=== PATIENT | male | born 1995 | race African-American/Black ===

== ENCOUNTER 2020-02-08 16:38 | Emergency (ER) | payer SELFPAY ==
[2020-02-08 16:42] VITALS: BP 98/70; PULSE 103; RESP 18; TEMP 36.9; O2SAT 100
== END 2020-02-08 16:52 | disposition left against medical advice (07) ==
LOC: ER 21:56
PROVIDERS: Emergency Provider Family Medicine
DX: Z53.21 Procedure and treatment not carried out due to patient leaving prior to being seen by health care provider (principal)
CPT/HCPCS: 99281

== ENCOUNTER 2020-02-08 16:59 | Emergency (ER) | payer SELFPAY ==
[2020-02-08 17:15] VITALS: BP 122/72; PULSE 89; RESP 18; TEMP 36.9; O2SAT 96; BMI 32.3
--- NOTE | 2020-02-08 17:36 | PC.NURSE ---
Patient could be heard in a nearby room yelling at staff. Dr. Bertrand at bedside trying to communicate with the patient. The patient verbalized wanting to kill himself to nursing staff. The patient attempted to leave the room. Security at the room attempting to keep the patient in the room while Dr. Schmitt attempted to verbally calm and reason with him. The patient broke free from security. Staff assist computer security coordinator until he could apply an appropriate hold. chief supply chain officer regained control. Patient continued to struggle with security and staff until Dr. Schmitt (stationary steam engineer) advised us to stand down due to verbal statements of harm to ED staff. Patient was released and allowed to leave. PD called.
--- NOTE | 2020-02-08 17:51 | ED_ITS ---
HPI - Overdose General: Chief Complaint: Overdose Stated Complaint: od Time Seen by Provider: 02/08/20 17:20 History of Present Illness: HPI Narrative: 4-year-old black male who presented earlier in the day and told the triage nurse he taken 6 Xanax in an attempt to harm himself. He left the triage without being seen. Triage nurse called the [place] PD to have the patient brought back for evaluation. He came back of his own accord accompanied by his was triaged and brought to her room. When I went to the room he was mildly aggravated I asked his to leave the room so we could do the history and exam patient became quite upset. See notes below Physical Exam Narrative: EXAM NARRATIVE: Refused by patient Course Vital Signs: Vital signs: Vital Signs Temperature 98.4 F 02/08/20 17:15 Pulse Rate 89 02/08/20 17:15 Respiratory Rate 18 02/08/20 17:15 Blood Pressure 122/72 02/08/20 17:15 Pulse Oximetry 96 02/08/20 17:15 MDM - Overdose MDM Narrative: Medical decision making narrative: Patient denied suicidal ideation. However there is documentation from earlier in the day that he had intentionally overdosed. Tried to de-escalate with him and discussed with him that we if we just get him medically cleared out have a psychiatrist see him in the emergency room as soon as possible and if the psychiatrist I do not to be wrist himself or others he would be discharged immediately. Did inform him that based on his earlier comments he would have to be 96. Patient became extremely belligerent at that point and tried to force his way out of the room security was present. Nela Officer Andrea Sevilla and negative cleaner Khari Briscoe attempted to stop the patient and de-escalate with him the patient became increasingly violent. I instructed both Roel and Luis Felipe to allow the patient to leave I was concerned that they would become injured, the patient or some other bystander would become injured. The patient was allowed to leave the emergency room department. [facility] had been called prior to the patient leaving. We did inform the patient that if he left since he was considered to be on a 96- hour hold that the police department would have to bring him back here for evaluation. We have notified PD and I talked to officers from [facility] department about what it happened here he also notified them that of his 's comment and my perception after interviewing the patient that he was trying to generate a fight to get someone to harm him. Discharge Plan Discharge Patient Disposition: Left Against Medical Advice Coding Level of Care Code ED Public Works Laborer for Og Dhillon
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
== END 2020-02-08 17:36 | disposition left against medical advice (07) ==
LOC: ER 03-30 11:33
PROVIDERS: Emergency Provider Family Medicine
DX: T42.4X2A Poisoning by benzodiazepines, intentional self-harm, initial encounter (principal); Z53.21 Procedure and treatment not carried out due to patient leaving prior to being seen by health care provider
CPT/HCPCS: 12345; 99281

== ENCOUNTER 2020-02-08 19:59 | Inpatient (IN) | payer SELFPAY ==
[2020-02-08 20:01] VITALS: BP 138/91; PULSE 110; RESP 18; TEMP 37; O2SAT 97; BMI 31.3
--- NOTE | 2020-02-08 20:19 | ECG_ITS ---
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 Measurements Intervals [place] Rate: 77 P: 39 [place]: 163 QRS: 60 QRSD: 85 T: 12 QT: 342 QTc: 387 Interpretive Statements SINUS RHYTHM WITH SINUS ARRHYTHMIA ST ELEVATION, PROBABLY EARLY REPOLARIZATION [ST ELEVATION WITH NORMALLY INFLECTED T WAVE] NONSPECIFIC T-WAVE ABNORMALITY No previous ECG available for comparison Electronically Signed On 02-09-2020 9:50:24 CDT by Brent Colvin M.D. [email or web address]
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
[2020-02-08 20:54] LABS: Basophils % 0.4 %; Eosinophils # 0.1 10^3/uL (0.0-0.8); Eosinophils % 1.5 %; Hematocrit 44.5 % (42.0-52.0); Hemoglobin 14.2 g/dL (11.7-16.6); Lymphocytes # 1.6 10^3/uL (0.8-4.8); Lymphocytes % 30.2 %; Mean Corpuscular HGB Conc 31.9 g/dL (30.0-36.0); Mean Corpuscular Volume 81.5 fL (80-94); Mean Platelet Volume 9.9 fL (7.4-10.4); Monocytes # 0.4 10^3/uL (0.2-0.9); Monocytes % 8.2 %; Neutrophils # 3.19 10^3/uL (1.8-7.7); Neutrophils % 59.5 %; Nucleated Red Blood Cells % 0 %; Platelet Count 253 10^3/cmm (130-400); Red Blood Count 5.46 10^6/uL (4.1-5.3); White Blood Count 5.4 10^3/uL (4.0-10.0)
[2020-02-08 21:00] LABS: Glucose Point of Care 92 mg/dL (70-110)
--- NOTE | 2020-02-08 21:04 | PC.NURSE ---
EKG done at 2100 and shown to ER doctor
[2020-02-08 21:17] LABS: INR 1.04 (0.8-1.2)
[2020-02-08 21:24] LABS: Acetaminophen < 5.0 ug/mL (10-30); Alanine Aminotransferase 18 U/L (0-41); Albumin Level 4.3 g/dL (3.5-5.2); Alcohol Level < 10 mg/dL (0-10); Alkaline Phosphatase 104 IU/L (40-130); Anion Gap 13.8 (5-19); Aspartate Amino Transferase 20 U/L (0-40); Blood Urea Nitrogen 12 mg/dL (6-20); Calcium 9.4 mg/dL (8.5-10.5); Carbon Dioxide 25 mmol/L (22-29); Chloride 102 mmol/L (98-107); Globulin 3.1 g/dL (1.3-4.6); Glucose 97 mg/dL (65-115); Osmolality Calculated 280 mOsm/kg (285-295); Potassium 3.8 mmol/L (3.5-5.1); Salicylate 0.6 mg/dL (3-10); Sodium 137 mmol/L (136-145); Thyroid Stimulating Hormone 0.44 uIU/mL (0.27-4.20); Total Bilirubin 0.3 mg/dL (0.15-1.2); Total Protein 7.4 g/dL (6.6-8.7)
[2020-02-08 21:27] VITALS: BP 137/82; PULSE 66; RESP 11; O2SAT 98
[2020-02-08 21:36] LABS: Add Urine Microscopic? NO
[2020-02-08 21:37] LABS: Urine Appearance Clear (CLEAR); Urine Color Yellow (Yellow)
[2020-02-08 21:38] LABS: Bilirubin Urine Neg (NEGATIVE); Blood Urine Neg (Negative); Glucose Urine UA Norm (Normal); Ketones Urine Negative (Negative); Leukocyte Esterase Urine Negative (Negative); Nitrate Urine Negative (Negative); Protein Urine Neg (Negative); Urobilinogen Urine Norm (Negative); pH Urine 5 (5-7)
[2020-02-08] MEDS: sodium chloride 0.9% 1,000 ML 999 ML IV (22:00)
[2020-02-08 22:01] LABS: Amphetamines Screen Urine Negative (Negative); Barbiturates Screen Urine Negative (Negative); Benzodiazepines Screen Urine Positive (Negative); Cocaine Screen Urine Negative (Negative); Opiate Screen Urine Negative (Negative); PCP Screen Urine Negative (Negative); THC Screen Urine Positive (Negative)
[2020-02-08] MEDS: diphenhydrAMINE 50 mg/mL SDV 1mL IM (22:30)
[2020-02-08] MEDS: haloperidol inj 5 mg/mL INJ 1 mL 2 MG IM (22:30)
[2020-02-08] MEDS: LORazepam 2 mg/mL INJ 1 mL IM (22:30)
--- NOTE | 2020-02-08 22:33 | PM.HP ---
Providers/Chief Complaint Chief Complaint: OD History of Present Illness Elvin Steiner is a 24 year old male who presented to the hospital after a reported drug overdose. Patient is stating that he had an argument with his mother, he got really upset and took 6 tablets of Xanax, he did not intend to kill himself, he wanted to make a point in front of his mother, he was brought by EMS who found 3 empty bottles of Tylenol, Excedrin Migraine and loratadine. He left from the triage room, police department was reported who brought him back. He was very noncooperative and aggressive with the staff on second visit to the ER. He stated that he wanted to make appoint that people love you more when you are sick or . At the time of my evaluation he is very drowsy after getting Haldol and Ativan, is not able to give me much detail, review of symptoms not able to be taken, family history, surgical history unknown, no previous medical history from previous medical records. Review of Systems General: Reports: ROS unobtainable due to medical condition (He received Haldol and Ativan, really drowsy not able to give me much detail) Const: Reports: fever(s) Medications/Allergies Home Medications Medication Instructions Recorded Confirmed Last Taken Type Xanax See Rx Instructions .ROUTE .COMPLEX 02/08/20 02/08/20 02/08/20 History Allergies Allergy/AdvReac Type Severity Reaction Status Date / Time No Known Allergies Allergy Verified 02/08/20 21:13 PFSH Acute PFSH: Medical History (Updated 02/09/20 @ 01:04 by kD Arriola MD) Unknown family medical history Surgical History (Updated 02/09/20 @ 01:02 by Dk Arriola MD) Surgical history unknown Social History (Updated 02/09/20 @ 01:02 by Dk Arriola MD) Smoking and tobacco status: unknown if ever smoked Alcohol intake: unknown Substance/Drug Use: unknown Household members: spouse Housing: House Vitals/I&O/Wt Last Vital Signs Temp 98.6 F 02/08/20 20:01 Pulse 66 02/08/20 21:27 Resp 11 L 02/08/20 21:27 BP 137/82 02/08/20 21:27 Pulse Ox 98 02/08/20 21:27 Weight last 48 hrs Weight 90.718 kg Physical Exam Narrative: EXAM NARRATIVE: Young -[place] male currently very somnolent, is able to wake up on verbal commands, he opens his eyes, look around and goes back to sleep, not able to reciprocate appropriately Well-built male Scar radha on upper lip No active bleeding S1, S2 no tachycardia or signs of dehydration Heart rate ranging between 55-60, blood pressure stable Neurological assessment not applicable however patient is responding to verbal commands by opening his eyes on calling his name, his sat in his bed in front of me look around and went back to sleep No gross facial asymmetry, no gross neurological deficit Abdomen soft nontender nondistended bowel sound present Lungs are clear to auscultation No signs of respiratory depression Data : 02/08/20 20:48 02/08/20 20:48 A&P Assessment and plan (1) Drug overdose, intentional: Status: Acute (2) Depression: Status: Acute Additional A&P Information Intentional drug overdose Past medical, surgical, family history unknown patient not able to reciprocate during my evaluation, 3 empty bottles of loratadine, Excedrin migraine and Tylenol were found near him Patient reported taking Xanax to the triage nurse No active risk for depression, sinus bradycardia noted, no hemodynamic instability Clinically does not look fluid overloaded or dehydrated We will monitor him with one-to-one supervision, 96-hour hold, he will see a psychiatrist in the morning U tox reviewed For acute agitation I would use Ativan judiciously Once medically cleared he will go to npu Regular diet DVT prophylaxis not needed as he is low risk for PE Full code Attestations Medical Necessity Statement*: Anticipating stay in the hospital cross more than 2 midnights continue monitoring for drug overdose, he will see psychiatrist in the morning currently on 96-hour hold Time Spent in Patient Care: (>than 50% of time spent in counselling and/or direct pt care on unit). 30 minutes Coding Level of Care Code Acute Hi Lift Operator for Og Dhillon Diagnoses Drug overdose, intentional T50.902A Depression F32.9
[2020-02-08 22:42] VITALS: BP 125/64; PULSE 63; RESP 21; O2SAT 97
[2020-02-08 23:14] VITALS: BP 124/53; PULSE 64; RESP 20; O2SAT 99
--- NOTE | 2020-02-08 23:15 | PC.NURSE ---
Patient's oxygen levels dropped to 89%. Informed a nurse and was advised to place him on 2 liters of oxygen. I have placed patient on 2L via nasal cannual per nurse's orders.
[2020-02-08 23:59] VITALS: BP 133/53; PULSE 53; RESP 19; O2SAT 97
--- NOTE | 2020-02-09 01:14 | PC.NURSE ---
Pt becoming verbally aggresive, removing cardiac electrodes and IV. Pt demanding that to be D/C. Pt also demanding to be able to call his mother. Pt mother contacted, transferred to pt's room. After arguing with mother, pt becoming more agitated. States if you want to give me a shot, it's going to take the whole hospital to do that . De escalation techniques used. Pt cooperative, allowing meds to be adm in R deltoid. Pt becoming calm after meds adm
[2020-02-09 01:47] VITALS: BP 122/51; PULSE 60; RESP 16; O2SAT 98
[2020-02-09 02:30] VITALS: BP 102/66; PULSE 52; RESP 17; TEMP 36.1; O2SAT 98
--- NOTE | 2020-02-09 03:37 | PC.NURSE ---
THE PATIENT CAME TO THE FLOOR WITH A PAIR OF BLACK WITH ORANGE AND RED NIKE'S, BLACK SWEAT PANTS WITH ORANGE STRIPES, PLAIN WHITE T-SHIRT, BLUE PAIR OF BOXER BRIEFS, ORANGE BANDANA, BROWN WALLET WITH MISC. CARDS, SILVER IN COLOR WATCH, SILVER IN COLOR CHAIN WITH AN HOUR GLASS LOOKING CHARM WITH WHAT APPEARS TO BE ASHES IN IT, AND A SMALL POCKETED FOLDER WITH $64 IN ONE DOLLAR BILLS, $140 IN 20 DOLLAR BILLS, AND A SINGLE 100 DOLLAR BILL. IN TOTAL THERE IS $304. THIS MONEY WAS COUNTED WITH A SECOND NURSE. IN THE BAG OF THE PATIENT'S BELONGINGS THERE IS ALSO AN EMPTY BOTTLE OF ACETAMINOPHEN, EMPTY BOTTLE OF EXCEDRIN MIGRAINE, AND A BOTTLE OF ALLERGY RELIEF. ALL ITEMS LOCKED IN THE PYXIS WITH THE WITNESS OF A SECOND NURSE.
[2020-02-09 04:00] VITALS: BP 117/65; PULSE 49; RESP 15; TEMP 36.4; O2SAT 99
[2020-02-09 05:18] LABS: Basophils % 0.4 %; Eosinophils # 0.1 10^3/uL (0.0-0.8); Eosinophils % 2.4 %; Hemoglobin 12.9 g/dL (11.7-16.6); Lymphocytes % 43.5 %; Mean Corpuscular HGB Conc 31.5 g/dL (30.0-36.0); Mean Corpuscular Hemoglobin 25.9 pg (28.0-34.0); Mean Corpuscular Volume 82.2 fL (80-94); Mean Platelet Volume 10.4 fL (7.4-10.4); Monocytes # 0.4 10^3/uL (0.2-0.9); Monocytes % 7.6 %; Neutrophils # 2.12 10^3/uL (1.8-7.7); Neutrophils % 45.9 %; Nucleated Red Blood Cells % 0 %; Platelet Count 220 10^3/cmm (130-400); Red Blood Count 4.99 10^6/uL (4.1-5.3); White Blood Count 4.6 10^3/uL (4.0-10.0)
[2020-02-09 05:49] LABS: Alanine Aminotransferase 16 U/L (0-41); Albumin Level 3.9 g/dL (3.5-5.2); Alkaline Phosphatase 88 IU/L (40-130); Anion Gap 11.8 (5-19); Aspartate Amino Transferase 16 U/L (0-40); Blood Urea Nitrogen 13 mg/dL (6-20); Calcium 8.3 mg/dL (8.5-10.5); Carbon Dioxide 25 mmol/L (22-29); Chloride 105 mmol/L (98-107); Globulin 2.7 g/dL (1.3-4.6); Glomerular Filtration Rate 126.5 mL/min (90-130); Glucose 107 mg/dL (65-115); Osmolality Calculated 283 mOsm/kg (285-295); Potassium 3.8 mmol/L (3.5-5.1); Sodium 138 mmol/L (136-145); Total Bilirubin 0.2 mg/dL (0.15-1.2); Total Protein 6.6 g/dL (6.6-8.7)
[2020-02-09 07:32] VITALS: BP 99/55; PULSE 56; RESP 16; TEMP 36.4; O2SAT 97
[2020-02-09] MEDS: LORazepam 2 mg/mL INJ 1 mL IVP (10:12)
--- NOTE | 2020-02-09 10:12 | PC.NURSE ---
ATIVAN ATIVAN ADMINISTERED IM
--- NOTE | 2020-02-09 10:44 | P.PN_ITS ---
Subjective Subjective: Interval history: This morning he is awake, alert, he is walking out into the hallway. During my visit he reports that he is feeling far from home, and says that he is wanting to see some family. He says he feels ready to go home. Discussed with him that at this time it is not a possibility we know that he is safe. I did offer to update his mother with regards to his condition, and he provided us with her phone number. She expressed that she is worried about him and that she feels that he is a threat to self or others potentially given she feels he has been going to severe depression recently based on what he has been saying. He is stated that he has lost his job due to coronavirus. Recently he has also been through a number of deaths including his best friend who was involved in a murder suicide with his own father, as well as her brother who had recently. She and her had also previously , and it appears this has been difficult for him to go through as well. Mother feels that given his recent behavior he may have been purposefully trying to look for trouble and possibly act on his depression, perhaps inadvertently wishing to be harmed in the process. He had previously stated to her I am black and they are going to kill me . She does state that he had brought his firearm with him down here, but not the magazine she feels that this was again perhaps to try to cause a situation where he may get harmed. Vitals/I&O/Wt Last Vital Signs Temp 97.6 F 02/09/20 07:32 Pulse 56 L 02/09/20 07:32 Resp 16 02/09/20 07:32 BP 99/55 02/09/20 07:32 Pulse Ox 97 02/09/20 07:32 Weight last 48 hrs Weight 90.718 kg Physical Exam Const: COMMON NORMALS: no acute distress and patient oriented x3 OTHER: He appears restless, looking at the door, eager to leave. Was able to be talked down initially. HENMT: COMMON NORMALS: oropharynx normal Neck/C-Spine: COMMON NORMALS: no JVD Resp: COMMON NORMALS: normal respiratory effort and clear to auscultation bilaterally AUSCULTATION: clear to auscultation bilaterally Cardio: COMMON NORMALS: no JVD, regular rhythm, S1 normal heart sound present, S2 normal heart sound present and No murmurs present (Cardio) RHYTHM: regular rhythm HEART SOUNDS: S1 normal heart sound present and S2 normal heart sound present GI: COMMON NORMALS: Normal to inspection, nondistended, normoactive bowel sounds present, Soft to palpation and non-tender PALPATION: Yes Soft to palpation Extremity: COMMON NORMALS: no joint enlargement and no pedal edema Neuro: COMMON NORMALS: patient oriented x3 and moves all extremities Skin: COMMON NORMALS: no rashes or lesions noted GENERAL SKIN EXAM: no rashes or lesions noted Data : 02/09/20 04:35 02/09/20 04:35 A&P Assessment and plan (1) Drug overdose, intentional: He did well overnight. This morning he is restless, and has been ready to leave. Prescription with his mother she is highly concerned about his depression, with a number of deaths in people who are close to him, as well as him losing his job due to coronavirus, as well as his statements which make her concerned that he may be trying to get himself into harm's way, perhaps as part of his depression. She states that she has never been violent, but recently feels that perhaps violence has been way for him to find escape, and perhaps even a way to cause his own demise as a result of his depression. He himself states that he had taken pills just for short while, and that he did not mean to kill himself. He states he did not even swallow. He says he would like to leave as he is not close to any of his relatives. He wanted to see his mother if possible. Was reassured and agreed for me to give her an update. He has to tell her that he is out of his father first thing when he woke up. Per discussion with her peers today had also previously , and he did not take this very well. Patient himself states that he had gotten into the area following a girl that he had left. But states that they are no longer together He was reassured initially, and was able to calm down somewhat, however, again becoming somewhat restless, anxious later, and was given additional dose of Ativan. Remains awake, alert, conversant, and at this time makes no threat or attempt to leave. I reached out to our NPU as medically he is done well, hemodynamics have been stable, and he has no other complaints at this time, so that he may get add itional psychiatric assessment. He is on medical floor as reportedly there were no ICU beds where he could be admitted initially with 96-hour hold and one-to-one sitter. He does not currently have an IV. Status: Acute (2) Depression: As above. Status: Acute Additional A&P Information Incidentally noted bradycardia: This appears to be asymptomatic. Will monitor for now, it is possible he has a low resting heart rate, although his baseline is unknown. Attestations Medical Necessity Statement*: Continued admission is needed for assessment by psychiatry due to concern for unmanaged depression, suicidal ideation and attempt. Coding Level of Care Code Acute Diamond Selector for Og Dhillon Diagnoses Drug overdose, intentional T50.902A Depression F32.9
[2020-02-09 11:15] VITALS: BP 114/62; PULSE 59; RESP 18; TEMP 37; O2SAT 96
--- NOTE | 2020-02-09 12:16 | PC.NURSE ---
PATIENT WOKE UP AROUND 1000 WONDERING WHY HE WAS HERE AND WHAT WE INJECTED HIM WITH. PATIENT BEGAN PACING THE HALLS AND WAS AGITATED. THIS NURSE GOT A HOLD OF DR. GRANDE TO ASK ABOUT TRANSFER TO PSYCH. DR. EVANS CONSULTED AND TRANSFER ORDERS PLACED. PATIENT DOES NOT HAVE AN IV. [facility]IENT ESC[facility]ED OUT BY [facility]. PATIENT BELONGING LIST SENT ALONG WITH CHART. REPORT CALLED TO RICHARD POTTER.
[2020-02-09 20:06] VITALS: BP 110/60; PULSE 58; RESP 17; TEMP 36.9; O2SAT 96
[2020-02-09] MEDS: hyDROXYzine 25 mg Capsule 50 MG PO (21:04)
[2020-02-09] MEDS: trazodone 50 mg Tablet PO (21:05)
[2020-02-10 06:00] VITALS: BP 114/67; PULSE 54; RESP 16; TEMP 37.1; O2SAT 99
[2020-02-10] MEDS: folic acid 1 mg Tablet PO (08:27)
[2020-02-10] MEDS: thiamine 100 mg Tablet PO (08:27)
[2020-02-10 14:00] VITALS: BP 144/51; PULSE 99; RESP 20; TEMP 36.9; O2SAT 96
[2020-02-10] MEDS: escitalopram 10 mg Tablet PO (14:07)
--- NOTE | 2020-02-10 16:32 | XR_ITS ---
WS: [id number] Right hand, three views, 02/10/2020 Clinical Data: Pain and swelling Comparison: None. Findings: No fractures or dislocations are seen. The soft tissues are unremarkable. The joint space s are normal XR/XR hand RT min 3V* [id number] Impression: Negative right hand.
[2020-02-10 20:16] VITALS: BP 149/66; PULSE 68; RESP 21; TEMP 37; O2SAT 96
[2020-02-10] MEDS: trazodone 50 mg Tablet PO (20:46)
[2020-02-10] MEDS: OLANZapine 5 mg ODT PO (20:46)
[2020-02-11 06:00] VITALS: BP 103/67; PULSE 45; RESP 17; TEMP 36.7; O2SAT 97
[2020-02-11] MEDS: folic acid 1 mg Tablet PO (08:43)
[2020-02-11] MEDS: thiamine 100 mg Tablet PO (08:43)
[2020-02-11] MEDS: escitalopram 10 mg Tablet PO (08:43)
[2020-02-11 09:47] VITALS: BP 103/67; PULSE 45; RESP 17; TEMP 36.7; O2SAT 97
--- NOTE | 2020-02-11 11:03 | P.HP_ITS ---
Providers/Chief Complaint Admitting Physician: Dk Arriola MD Chief Complaint: OD HPI NPU History of Present Illness Elvin Steiner is a 24 year old male who presented to the emergency room a couple of days prior to admission to the unit, after a reported overdose. He then denied really taking the pills saying he has a prescription for the Xanax but he only took one that day. He was brought by EMS, and they brought empty pills bottles of Tylenol, Loratadine, and Excedrin Migraine. He denied wanting to kill himself but rather was reporting that he was trying to make a point. He was tearful and regretful during the evaluation. He was reportedly combative and attempted to assault staff earlier in the day. He left and the police were involved and brought him back. Upon return he was cooperative and was talking about what you have to do to get people to show that they love you. He said that he was being called names by his mother figure, and he endorsed conflicts that were seemingly insurmountable, at times. He was admitted to the hospital for evaluation and medical clearance, given the confusion about what he had actually ingested. After he was medically cleared he was brought to the neuropsychiatric unit. He presents here [place], and things had been getting better since he came here. He reports that he had been getting in trouble in the [facility] [place]. He reports he had psychiatric care when he was young. They endorsed that he had attention deficit hyperactivity disorder, but he said the medications were no good. He reports he does still struggle some with focus. He endorses that he does not smoke cigarettes with any regularity. He denies alcohol, marijuana, or any other illicit drug use. He denies going to drug rehabilitation or having a DUI. He denies previous hospitalizations. He is currently reporting pain on his right hand and depression and anxiety that are regular parts of his day, feelings of hopelessness, helplessness, worthlessness, some sleep difficulty, at times, and feelings of guilt. He denies any suicidal attempts or even legitimate suicidal thoughts. We discussed the risks, benefits, and alternatives of initiating Lexapro, and he understood and agreed to proceed as is documented in this note. PSYCHIATRIC HISTORY: As above. SUBSTANCE ABUSE HISTORY: As above. FAMILY HISTORY: He endorses mental health and addiction issues on his biological father?s side of the family. He denies any suicide attempts or completions in the family. DEVELOPMENTAL HISTORY: The patient denies any issues with his mother?s or delivery of him. The patient met all developmental milestones on time. The patient denies speech therapy, learning support, emotional support, or special education classes. PSYCHOSOCIAL HISTORY: He reports that his parents were together when he was born, but they split when he was about 3 years old. He endorses that his parents have he and his three older siblings together. He denies either of them having children with anyone else. He reports that his childhood was good and he denies any emotional, physical, or sexual abuse. But then later he did say that his mom?s friend may have done something but it was very critical for him that this not be anything that was ever discussed, and he did not really want to talk about it. He graduat ed from high school and had no college. He endorses being a heterosexual, with his longest relationship being about seven years. He has never been officially . He has a 6 year old son, whom he does see from time to time. He denies being in the . He reports believing in God. He reports that his longest job worked was three years at [employer]. He reports he lives in a house with his girlfriend. LEGAL HISTORY: Denied. MEDICAL HISTORY: None reported. Meds NPU Home Medications Medication Instructions Recorded Confirmed Last Taken Type escitalopram oxalate 10 mg PO DAILY 30 Days #30 tab 02/11/20 Unknown Rx Allergies Allergy/AdvReac Type Severity Reaction Status Date / Time No Known Allergies Allergy Verified 02/08/20 21:13 [facility] NPU PFS: Medical History (Updated 02/12/20 @ 00:01 by ) Unknown family medical history Surgical History (Updated 02/09/20 @ 01:02 by Dk Arriola MD) Surgical history unknown Social History (Updated 02/09/20 @ 01:02 by Dk Arriola MD) Smoking and tobacco status: unknown if ever smoked Alcohol intake: unknown Household members: spouse Housing: House Mental Status Exam MSE Comments: This is an overweight, -[place] male, looking younger than his stated age, with adequate dress, grooming, and eye contact. No abnormal movements. Cooperative with exam in no acute distress. Speech was normal rate and volume. Mood described as a little down; affect congruent. Thought process, organized. Thought content: patient denied any suicidal or homicidal ideation, there were no delusions reported or noted, patient denied any auditory or visual hallucinations. Attention, concentration, and memory appear intact but none were formally tested. He is alert and oriented times three. Insight and judgment are good. Vitals/I&O/Wt Last Vital Signs Temp 98.1 F 02/11/20 09:47 Pulse 45 L 02/11/20 09:47 Resp 17 02/11/20 09:47 BP 103/67 02/11/20 09:47 Pulse Ox 97 02/11/20 09:47 Data NPU : 02/09/20 04:35 02/09/20 04:35 A&P Assessment and plan (1) Adjustment disorder with mixed disturbance of emotions and conduct: Status: Acute (2) Depression: Status: Acute Additional A&P Information This is a 24 year old, -[place] male, with adjustment disorder with mixed disturbance of emotion and conduct, and depressive disorder, with recent relational stressors, who presents open to initiating medication. Continue current medications, except: Start Lexapro 10 mg po qam. Encourage individual, group, and milieu therapy. Continue q-15 minute checks for safety. Involuntary Hold Information 96 Hour Hold: 96 Hour Involuntary Admission: Yes 96 Hour Hold Ending Date: 02/14/20 96 Hour Hold Ending Time: 17:20 Attestations NPU Medical Necessity Statement*: Inpatient hospitalization is medically necessary and the clinically appropriate intervention, at this time. We will monitor medications and make changes as indicated. Patient will be in the hospital for o homer two midnights. Likely length of stay is two to four days. Coding Level of Care Code Acute Sales Warehouse Driver for Og Dhillon Diagnoses Adjustment disorder with mixed disturbance of emotions and conduct F43.25 Depression F32.9
--- NOTE | 2020-02-11 11:14 | P.DS_ITS ---
Diagnoses at Discharge Discharge Diagnosis (1) Drug overdose, intentional: Status: Resolved (2) Depression: Status: Acute (3) Adjustment disorder with mixed disturbance of emotions and conduct: Status: Acute Reason for Visit Reason for Visit: OD Brief History: History of Present Illness Elvin Steiner is a 24 year old male who presented to the emergency room a couple of days prior to admission to the unit, after a reported overdose. He then denied really taking the pills saying he has a prescription for the Xanax but he only took one that day. He was brought by EMS, and they brought empty pills bottles of Tylenol, Loratadine, and Excedrin Migraine. He denied wanting to kill himself but rather was reporting that he was trying to make a point. He was tearful and regretful during the evaluation. He was reportedly combative and attempted to assault staff earlier in the day. He left and the [place] friend were involved and brought him back. Upon return he was cooperative and was talking about what you have to do to get people to show that they love you. He said that he was being called names by his mother figure, and he endorsed conflicts that were seemingly insurmountable, at times. He was admitted to the hospital for evaluation and medical clearance, given the confusion about what he had actually ingested. After he was medically cleared he was brought to the neuropsychiatric unit. He presents here reporting that [place], and things had been getting better since he came here. He reports that he had been getting in trouble in the [place] [facility] [place]. He reports he had psychiatric care when he was young. They endorsed that he had attention deficit hyperactivity disorder, but he said the medications were no good. He reports he does still struggle some with focus. He endorses that he does not smoke cigarettes with any regularity. He denies alcohol, marijuana, or any other illicit drug use. He denies going to drug rehabilitation or having a DUI. He denies previous hospitalizations. He is currently reporting pain on his right hand and depression and anxiety that are regular parts of his day, feelings of hopelessness, helplessness, worthlessness, some sleep difficulty, at times, and feelings of guilt. He denies any suicidal attempts or even legitimate suicidal thoughts. We discussed the risks, benefits, and alternatives of initiating Lexapro, and he understood and agreed to proceed as is documented in this note. PSYCHIATRIC HISTORY: As above. SUBSTANCE ABUSE HISTORY: As above. FAMILY HISTORY: He endorses mental health and addiction issues on his biological father?s side of the family. He denies any suicide attempts or completions in the family. DEVELOPMENTAL HISTORY: The patient denies any issues with his mother?s or delivery of him. The patient met all developmental milestones on time. The patient denies speech therapy, learning support, emotional support, or special education classes. PSYCHOSOCIAL HISTORY: He reports that his parents were together when he was born, but they split when he was about 3 years old. He endorses that his parents have he and his three older siblings together. He denies either of them having children with anyone else. He reports that his childhood was good and he denies any emotional, physical, or sexual abuse. But then later he did say that his mom?s friend may have done something but it was very critical for him that this not be anything that was ever discussed, and he did not really want to talk about it. He graduated from high school and had no college. He endorses being a heterosexual, with his longest relationship being about seven years. He has never been officially . He has a 6 year old son, whom he does see from time to time. He denies being in the . He reports believing in God. He reports that his longest job worked was three years at [employer]. He reports he lives in a house with his girlfriend. LEGAL HISTORY: Denied. MEDICAL HISTORY: None reported. Hospital Course Hospital Course Elvin presented to the emergency room twice; once wherein there was a significant resistance to treatment and he left, and was then brought back by the police, and that time he was more cooperative. More or less, he was identifying that the reported overdose attempt was an attention gathering tool, with his mother figure, who he moved down to [place] with. Given concerns about what he had ingested, secondary to some empty bottles being brought in, he was admitted to the medical floor for definitive treatment and medical clearance for his possible overdose. After he was medically cleared, he was transferred to the neuropsychiatric unit for definitive treatment of those issues. He quickly acclimated to the individual, group, and milieu therapies provided. He was open to an initiation of an antidepressant and Lexapro was started without incident. He showed significant improvement and his 96-hour hold was rescinded. During the hospitalization, the patient had routine laboratory studies which were within normal limits, except for a few outliers. Additionally, the patient had a general medical evaluation which was within normal limits and revealed no new acute processes. Discharge Summary At the time of discharge the patient denied all lethality, was absent psychosis, and mood and anxiety were well managed. The patient endorsed a plan follow-up with outpatient services, as recommended. The patient was evaluated and deemed to be absent credible lethality, and had achieved the maximum benefit from an inpatient hospitalization, and so he was discharged. Involuntary Hold Information 96 Hour Hold: 96 Hour Involuntary Admission: Yes 96 Hour Hold Ending Date: 02/14/20 96 Hour Hold Ending Time: 17:20 Mental Status Exam MSE Comments: This is an overweight, -[place] male, looking younger than his stated age, with adequate dress, grooming, and eye contact. No abnormal movements. Cooperative with exam in no acute distress. Speech was normal rate and volume. Mood described as better; affect congruent. Thought process, organized. Thought content: patient denied any suicidal or homicidal ideation, there were no delusions reported or noted, patient denied any auditory or visual hallucinations. Attention, concentration, and memory appear intact but none were formally tested. He is alert and oriented times three. Insight and judgment are good. Discharge Data Data Completed and Pending: Completed Studies During Hospitalization Category Date Time Status XR hand RT min 3V * [id number] Routine Exams 02/10/20 16:32 Completed Vitals: Last Vital Signs Temp 98.1 F 02/11/20 09:47 Pulse 45 L 02/11/20 09:47 Resp 17 02/11/20 09:47 BP 103/67 02/11/20 09:47 Pulse Ox 97 02/11/20 09:47 Discharge Plan Discharge Patient Disposition: Home Condition: Stable Prescriptions: New escitalopram oxalate 10 mg Tablet 10 mg PO DAILY 30 Days Qty: 30 RF: 1 Discontinued Xanax See Rx Instructions .ROUTE .COMPLEX RF: 0 Discharge Orders: Discharge Order (Routine); Ordered 02/11/20 Ordered By: Troy Steiner Referrals: [facility] [Other] - 1-3 days (you can contact [facility] for outpatient mental health services. Same day access is available. ) Discharge Diet: Regular Discharge Activity: Resume usual activity Patient Instructions: Escitalopram (By mouth), Depression (DC), Anxiety (DC) Activity Restrictions/Additional Instructions: [place] has different locations for [facility] where you could possible receive outpatient mental health services. [facility] [address], [address] [place] [address] [facility] [address] [place] [address] [facility] [address] [place] [address] Discharge Date/Time: 02/11/20 11:30 Discharge Attestations NPU Time Spent in Discharge Care*: less than 30 min Specific Discharge Activities: Specific discharge activities: educating patient, discussing with comp field case manager/social workers/dc planners, documenting/other paperwork and evaluating patient/reviewing data Coding Level of Care Code Acute Shopping Investigator for Chg Fwd Diagnoses Drug overdose, intentional T50.902A Depression F32.9 Adjustment disorder with mixed disturbance of emotions and conduct F43.25
[2020-02-11 11:16] VITALS: BP 103/67; PULSE 45; RESP 17; TEMP 36.7; O2SAT 97
== END 2020-02-11 11:30 | disposition home or self-care (01) | DRG 918 ==
LOC: ER 20:38 → MEDSURG 23:34 → NP 02-09 12:23
PROVIDERS: Admitting Provider Internal Medicine; Emergency Provider Emergency Medicine; Visit Provider Psychiatry & Neurology Psychiatry
DX: T50.902A Poisoning by unspecified drugs, medicaments and biological substances, intentional self-harm, initial encounter (principal); F32.9 Major depressive disorder, single episode, unspecified; R00.1 Bradycardia, unspecified; R45.1 Restlessness and agitation; F43.25 Adjustment disorder with mixed disturbance of emotions and conduct
CPT/HCPCS: 12345; 36415; 36416; 73130; 80053; 80306; 80307; 81003; 82962; 84443; 85025; 85610; 93005; 96372; 96375; 99284; J1200; J1610; J1630; J2060; J7030

== ENCOUNTER 2023-02-03 20:28 | Emergency (ER) | payer MEDICAID, SELFPAY ==
--- NOTE | 2023-02-03 20:29 | XRR_ITS ---
PROCEDURE INFORMATION: Exam: XR Right Hand Exam date and time: 02/03/2023 8:36 PM Age: 27 years old Clinical indication: Injury or trauma; Fall; Sprain or strain; Hand; Right; Additional info: Injury hurt RT hand 2 weeks ago TECHNIQUE: Imaging protocol: Radiologic exam of the right hand. Views: 3 or more views. COMPARISON: No relevant prior studies available. FINDINGS: Bones/joints: Normal. No acute fracture or dislocation. Normal alignment of the carpal bones. Soft tissues: Normal. XR/XR hand RT min 3V* [id number] IMPRESSION: No acute findings.
[2023-02-03 21:00] VITALS: BP 126/70; PULSE 70; RESP 18; TEMP 36.7; O2SAT 97; BMI 34.4
--- NOTE | 2023-02-03 22:25 | XRR_ITS ---
PROCEDURE INFORMATION: Exam: XR Right Wrist Exam date and time: 02/03/2023 10:43 PM Age: 27 years old Clinical indication: Injury or trauma; Fall; Blunt trauma (contusions or hematomas); Wrist; Right; Additional info: Injury 2 weeks ago TECHNIQUE: Imaging protocol: Radiologic exam of the right wrist. Views: 3 or more views. COMPARISON: Right hand 02/03/2023 8:36 PM FINDINGS: Bones/joints: Normal. No acute fracture or dislocation. Normal alignment of the carpal bones. No significant arthritic changes. Soft tissues: Normal. XR/XR wrist RT min 3V* [id number] IMPRESSION: No acute findings.
--- NOTE | 2023-02-03 22:27 | W.ED.EXTPRO ---
HPI - Extremity Problem General: Chief complaint: Extremity Injury, Upper Stated complaint: spranged, swollen, hurt right hand Time Seen by Provider: 02/03/23 22:26 History of Present Illness: 27-year-old male patient comes in today with swelling to the dorsal right hand. Patient reports about 2 weeks ago he injured his hand but it continues to swell and he was concerned there might be a fracture. Patient appears nontoxic. Patient moves extremities well. Patient has prompt capillary refill to digits. Patient denies any chronic medical problems. Review of Systems Musc: Reports: extremity pain (Right hand) [facility] ED PFSH: Medical History (Updated 02/03/23 @ 22:41 by STANTON Goetz) Unknown family medical history Surgical History (Updated 02/09/20 @ 01:02 by Dk Arriola MD) Surgical history unknown Social History (Updated 02/09/20 @ 01:02 by Dk Arriola MD) Smoking and tobacco status: unknown if ever smoked Alcohol intake: unknown Substance/Drug Use: unknown Household members: spouse Housing: House Physical Exam Const: COMMON NORMALS: alert HENMT: COMMON NORMALS: atraumatic HEAD & SCALP: atraumatic Neck/C-Spine: COMMON NORMALS: full ROM Resp: COMMON NORMALS: normal respiratory effort Cardio: COMMON NORMALS: regular rate RATE: regular rate Back/Pelvis: COMMON NORMALS: thoracic and lumbar spine normal to inspection Extremity: RIGHT UPPER EXTREMITY: Yes hand & digits (Mild dorsal hand swelling) Neuro: SENSORIUM/ORIENTATION: Yes alert Skin: COMMON NORMALS: turgor normal GENERAL SKIN EXAM: turgor normal Course Vital Signs: Vital signs: Vital Signs Temperature 98.0 F 02/03/23 22:53 Pulse Rate 70 02/03/23 22:53 Respiratory Rate 18 02/03/23 22:53 Blood Pressure 126/70 02/03/23 22:53 Pulse Oximetry 97 02/03/23 22:53 Oxygen Delivery Me thod Room Air 02/03/23 21:00 MDM - Extremity (Nontraumatic) Medical Decision Making 27-year-old male patient comes in today with injury to the right dorsal hand. On exam patient has some mild swelling to the dorsal hand. Normal range of motion of the hand. Distal cap refill is intact. Skin is warm and dry. Differential diagnosis includes fracture, sprain, contusion. X-ray noted no fracture. Believe patient probably has a sprain that should recover within 4 to 6 weeks. Reviewed this with patient reported understanding. Lab Data Radiology Impressions Hand X-Ray 02/03/23 20:29 IMPRESSION: No acute findings. Wrist X-Ray 02/03/23 22:25 IMPRESSION: No acute findings. Discharge Plan Discharge Patient Disposition: Home Clinical Impression: Hand sprain Qualifiers: Encounter type: initial encounter Laterality: right Qualified Code(s): S63.91XA - Sprain of unspecified part of right wrist and hand, initial encounter Condition: Stable Prescriptions: No Action escitalopram oxalate 10 mg Tablet 10 mg PO DAILY 30 Days Qty: 30 1RF Discharge Orders: Discharge ED (Routine); Ordered 02/03/23 Ordered By: Talha Garcia Discharge Diet: Usual diet Discharge Activity: Increase activity as tolerated Patient Instructions: Hand Sprain (ED) Activity Restrictions/Additional Instructions: Increase activity as tolerated. Use acetaminophen and ibuprofen for pain. Use ice for further pain relief. Follow-up with primary care for further instructions. Return to ED for new concerns. Coding Level of Care Code ED Butt Trimmer for gO Dhillon
[2023-02-03 22:53] VITALS: BP 126/70; PULSE 70; RESP 18; TEMP 36.7; O2SAT 97
== END 2023-02-03 22:54 | disposition home or self-care (01) ==
PROVIDERS: Emergency Provider Nurse Practitioner Family
DX: S63.91XA Sprain of unspecified part of right wrist and hand, initial encounter (principal); X58.XXXA Exposure to other specified factors, initial encounter
CPT/HCPCS: 73110; 73130; 99283

== ENCOUNTER 2023-04-08 21:07 | Emergency (ER) | payer OTHER, MEDICAID, SELFPAY ==
--- NOTE | 2023-04-08 21:09 | XRR_ITS ---
PROCEDURE INFORMATION: Exam: XR Left Ankle Exam date and time: 04/08/2023 9:16 PM Age: 27 years old Clinical indication: Injury or trauma; Fall; Blunt trauma; Ankle; Left TECHNIQUE: Imaging protocol: Radiologic exam of the left ankle. Views: 3 or more views. COMPARISON: No relevant prior studies available. FINDINGS: Bones/joints: Normal. Soft tissues: Normal. XR/XR ankle LT min 3V* [id number] IMPRESSION: No acute findings.
--- NOTE | 2023-04-08 21:11 | ED_ITS ---
HPI - Extremity Injury (Lower) General: Chief Complaint: Extremity Injury, Lower Stated Complaint: Left Ankle Pain Time Seen by Provider: 04/08/23 21:10 History of Present Illness: 27-year-old male patient comes in today for injury to the left Achilles. Patient states that he was going for a ball and his left leg was posteriorly stretched and he felt a popping sensation in the Achilles tendon. Since then patient has had increased pain and discomfort. Patient appears nontoxic. Patient appears in no acute distress. Patient reports no chronic medical problems. Review of Systems General: Reports: 10 or more systems reviewed and unremarkable except in HPI and below Musc: Reports: extremity pain and extremity swelling PFS ED PFSH: Medical History (Updated 04/08/23 @ 21:35 by STANTON Goetz) Unknown family medical history Surgical History (Updated 02/09/20 @ 01:02 by Dk Arriola MD) Surgical history unknown Social History (Updated 02/09/20 @ 01:02 by Dk Arriola MD) Smoking and tobacco/nicotine status: unknown if used tobacco/nicotine Alcohol intake: unknown Substance/Drug Use: unknown Household members: spouse Housing: House Physical Exam Const: COMMON NORMALS: alert HENMT: COMMON NORMALS: normocephalic HEAD & SCALP: normocephalic Neck/C-Spine: COMMON NORMALS: full ROM Resp: COMMON NORMALS: normal respiratory effort Cardio: COMMON NORMALS: regular rate RATE: regular rate Back/Pelvis: COMMON NORMALS: thoracic and lumbar spine normal to inspection Extremity: LEFT LOWER EXTREMITY: Yes ankle joint (Posterior ankle tenderness along the Achilles) OTHER: Calf squeeze test was positive Neuro: SENSORIUM/ORIENTATION: Yes alert Skin: COMMON NORMALS: turgor normal GENERAL SKIN EXAM: turgor normal Course Vital Signs: Vital signs: Vital Signs Temperature 98.4 F 04/08/23 21:17 Pulse Rate 76 04/08/23 21:17 Respiratory Rate 16 04/08/23 21:17 Blood Pressure 149/73 04/08/23 21:17 Pulse Oximetry 97 04/08/23 21:17 Oxygen Delivery Me thod Room Air 04/08/23 21:17 MDM - Extremity Injury (Lower) Medical Decision Making Patient comes in today for complaints of injury to the left ankle/Achilles tendon. On exam patient has some tenderness noted to the posterior ankle and Achilles tendon. No obvious deformity is noted. Pulses and sensation are intact. Squeeze test was positive. Soft Achilles was noted. Differential diagnosis includes but not limited to Achilles tendon rupture, ankle sprain, plantaris tendon strain. X-ray was unremarkable for fracture or dislocation. Patient was placed in a posterior splint and crutches and recommended for follow-up with foot and ankle for further evaluation and treatment. Reviewed patient with [facility] ER physician, whom agreed with plan XR interpretation done by ED provider, pending radiology final review Discharge Plan Discharge Patient Disposition: Home Clinical Impression: Acute rupture of Achilles tendon Condition: Stable Prescriptions: No Action No Known Home Medications Discharge Orders: Discharge ED (Routine); Ordered 04/08/23 Ordered By: Talha Garcia Referrals: Clayton Larose DO [Physician] - Patient Instructions: Achilles Tendon Rupture (ED) Activity Restrictions/Additional Instructions: Home and rest. Use crutches for comfort. Keep splint clean and dry. Follow-up with orthopedic surgeon/foot and ankle surgeon for further evaluation and treatment. Coding Level of Care Code ED Charter Representative for Og Dhillon
[2023-04-08 21:17] VITALS: BP 149/73; PULSE 76; RESP 16; TEMP 36.9; O2SAT 97; BMI 31.3
[2023-04-08 21:41] VITALS: BP 149/73; PULSE 76; RESP 16; TEMP 36.9; O2SAT 97
--- NOTE | 2023-04-09 07:50 | DCPLANNER ---
Sent referral through message and task to office 04/09/23 [id number] KATHARINA
== END 2023-04-08 22:02 | disposition home or self-care (01) ==
PROVIDERS: Emergency Provider Nurse Practitioner Family
DX: S86.012A Strain of left Achilles tendon, initial encounter (principal); X50.9XXA Other and unspecified overexertion or strenuous movements or postures, initial encounter
CPT/HCPCS: 73610; 99283; E0114

== ENCOUNTER 2023-04-16 12:20 | Outpatient (CLI) | payer OTHER, MEDICAID, SELFPAY ==
--- NOTE | 2023-04-16 13:00 | MR_ITS ---
WS: [id number] MRI LEFT ANKLE WITHOUT CONTRAST. COMPARISON: Radiographs 04/08/2023 Multiplanar, multisequence imaging is performed without contrast. Acute tear involving the myotendinous junction of the Achilles tendon. There is a large fluid-filled gap with retraction of the stumps. The tear is approximately 7.1 cm superior from the calcaneal inser tion site. There is a large fluid gap with additional fluid extending along the posterior muscle bund le. Fluid gap at the tear site is approximately 1.7 cm. There is additional fluid extending more supe riorly. There is also additional thickening of the remaining distal Achilles tendon. The entire tendo n distally appears tendinopathic. Only a small amount of increased fluid in the retrocalcaneal bursa. The remaining ankle structures are negative. No marrow edema or fracture. Normal peroneal tendons. Ex tensor and flexor tendon sheaths and tendons are normal. IMPRESSION: 1. Acute full-thickness tear Achilles tendon at the myotendinous junction. 2. Tear is approximately 7.1 cm superior from the calcaneal insertion site. 3. The distal Achilles tendon is thickened with linear increased T2 signal from tendinopathy.
== END 2023-04-16 12:21 | disposition home or self-care (01) ==
LOC: RAD 12:20
PROVIDERS: Visit Provider Podiatrist Foot & Ankle Surgery
DX: S86.012A Strain of left Achilles tendon, initial encounter (principal); X58.XXXA Exposure to other specified factors, initial encounter
CPT/HCPCS: 73721

== ENCOUNTER 2023-04-23 05:52 | Day surgery (SDC) | payer OTHER, MEDICAID, SELFPAY ==
[2023-04-23] VITALS (9 sets, daily range): BP systolic 119–165; BP diastolic 52–100; PULSE 76–98; RESP 15–18; TEMP 36.4–36.6; O2SAT 96–100; BMI 32.5
[2023-04-23] MEDS: sodium chloride 0.9% 1,000 ML 30 ML IV (06:25)
[2023-04-23] MEDS: acetaminophen 1,000 MG/100 ML PIGGYBACK 400 MG IV (06:26)
[2023-04-23] MEDS: gabapentin 300 mg Capsule PO (06:27)
[2023-04-23] MEDS: scopolamine 1.5 Patch 1 PATCH TRANSDERMA (06:38)
--- NOTE | 2023-04-23 06:51 | W.PM.OPSUD ---
Surgery/Procedure H&P Update DATE OF PROCEDURE: April 23, 2023 DATE H&P PERFORMED: 04/16/23 H&P UPDATE INFORMATION: I have reviewed H&P completed within last 30 days, I have examined patient prior to procedure, No changes to prior documentation and H&P is in [facility] EMR on date indicated PREOP DIAGNOSIS: Left achilles tendon rupture PLANNED PROCEDURE: Operation Date: 04/23/23 07:00 Proposed Procedures p Repair left achilles tendon CPT 53388 S86.011A(Left) - Henrik Cha DPM
[2023-04-23] MEDS: ceFAZolin 2,000 MG in sodium chloride 0.9% (plus) 50 ML 100 MG IV (07:01)
--- NOTE | 2023-04-23 07:59 | ANES.PREANE2 ---
Pre-Anesthetic Assessment Height/Weight: Height 1.7 m Weight 94.347 kg Temp Pulse Resp BP Pulse Ox O2 Del Method 97.5 F L 98 18 165/100 96 Room Air 04/23/23 06:24 04/23/23 06:24 04/23/23 06:24 04/23/23 06:24 04/23/23 06:24 04/23/23 06:24 Preop Diagnosis: Left achilles tendon rupture Operation Date: 04/23/23 07:00 Proposed Procedures p Repair left achilles tendon CPT 10498 S86.011A(Left) - Henrik Cha DPM Familial anesthetic complications: none Was Beta Siddharth taken within 24 hours: N/A Was Clonidine taken within 24 hours: N/A Last intake: Intake Last Liquid Date 04/22/23 Last Liquid Time 16:00 Last Solid Date 04/22/23 Last Solid Time 16:00 Social No alcohol and No tobacco Exam alert, oriented x 3, clear to auscultation bilaterally and regular rate & rhythm Airway Submandibular: within normal limits Cervical ROM: within normal limits Mallampati: Class II Dentition: full History/ROS No significant history except as noted Anesthetic Plan ASA status: 1 Anesthesia: General and Regional (specify below) (Left pop blk) Medications/Allergies Home Medications Medication Instructions Recorded Confirmed Last Taken Type hydrocodone 5 mg-acetaminophen 325 1 tab PO Q6H PRN pain #28 tabs 04/23/23 Unknown Rx mg tablet Allergies Allergy/AdvReac Type Severity Reaction Status Date / Time No Known Allergies Allergy Verified 04/23/23 06:15 Current Medications Generic Name Dose Route Start Last Admin Trade Name Freq PRN Reason Stop Dose Admin Sodium Chloride 1,000 mls @ 30 mls/hr 04/23/23 06:30 04/23/23 06:25 Sodium Chloride 0.9% IV 04/24/23 06:29 30 mls/hr .Q24H SHERIF Administration PFSH Anesthesia Medical History Unknown family medical history Surgical History Surgical history unknown Social History Smoking and tobacco/nicotine status: unknown if used tobacco/nicotine Alcohol intake: unknown Substance/Drug Use: unknown Household members: spouse Housing: House Data Anesthesia Cardiac Studies: No Data to Display Anesthesia Procedures Nerve Block Nerve Block 1: Main Anesthesia: general anesthesia Time Out Performed: Yes Consent: requested by attending/covering physician, from patient, risks and benefits reviewed and patient agrees to proceed Nerve block location: popliteal (left) Anesthesia monitors applied: pulse oximetry, EKG, BP cuff and oxygen Nerve block position: supine Anesthetic Used: ropivicaine 0.5% Amount of anesthesia used (mL): 30 Ultrasound used to: recognize landmarks Nerve Stimulator Used?: No Interscalene/Femoral BLK: 4 stimuplex 21 g needle used for position and inplane approach Injection: neg aspiration of heme Patient Tolerated Procedure: well Complications: none
[2023-04-23] MEDS: BUPivacaine 0.5% INJ 30 mL INJECTION (08:03)
--- NOTE | 2023-04-23 08:23 | W.PM.BPON ---
Date of procedure: 04/23/23 Surgeon name: Dr. Henrik Cha DPM Hospice Care Transitions Coordinator(s) name(s): None Procedure(s) performed: Primary repair left achilles tendon Description of findings: Left achilles tendon rupture Estimated blood loss: 10cc Specimen(s) removed: None Tourniquet Time: 45 Minutes Post-operative diagnosis: Left achilles tendon rupture
--- NOTE | 2023-04-23 08:24 | P.OP_ITS ---
Operative Report Date of procedure: April 23, 2023 Pre-op diagnosis: Left achilles tendon rupture Post-op diagnosis: Same Post-op findings: Left achilles tendon complete rupture Procedure done: 1. Primary repair left achilles tendon CPT 74109 Implants: PARS suture tape from [employer] Surgeon: Henrik Cha DPM Estimated blood loss: 10 cc 45 minutes Complications: None Findings: See above Procedure: Patient is a 27-year-old male that has a history of left Achilles tendon rupture. Direct primary repair of the left Achilles tendon. The extent of the injury necessitates primary repair of left Achilles tendon. A lengthy discussion regarding the procedure, including risks and complications has been had with the patient and is noted in the recent clinic note. Written and verbal consent have been obtained. All patient questions have been answered to the patient?s satisfaction. No written or verbal guarantees have been given or implied. The patient has been NPO since midnight. The history has been reviewed and the history and physical is current. The signed consent was confirmed and placed in the patient chart. Patient imaging has been reviewed and is consistent with the diagnosis. Under mild sedation, the patient was brought into the operating room and placed on the table in the prone position. IV antibiotics were given by the anesthesia team as preoperative surgical prophylaxis. General sedation was then performed by the anesthesiateam. A popliteal block was performed by the anesthesia department. A pneumatic tourniquet was then placed about the left thigh. The operative extremity was then prepped and draped in the usual fashion. The extremity was then elevated and exsanguinated before the tourniquet was inflated to 325 mmHg. After inflation, the following procedure was then performed. A 4 cm transverse incision was made along the course of the ruptured Achilles tendon using a #15 blade. The peritenon was carefully dissected, revealing the ruptured tendon ends. The ends were debrided to ensure healthy tissue. The [employer] PARS system was employed for repair, utilizing percutaneous suturing of the tendon ends through a series of small incisions and specialized instruments. High-strength, non-absorbable sutures were passed through the tendon stumps using the PARS system's needles. The sutures were tensioned appropriately to bring the tendon ends together in an anatomical position. The Achilles tendon was noted to be repaired successfully. The incision was then irrigated with copious amounts of sterile saline. Closure began with peritenon closure using 3-0 Vicryl followed by subcuticular closure with the same material. The skin was closed with 3-0 nylon in a horizontal mattress fashion. The incision was dressed with Xeroform, 4 x 4 gauze, and Kerlix before the extremity was placed in a well-padded below the knee posterior splint, maintaining a plantar-flexed position to protect the repair. The tourniquet was let down and good hyperemic response was noted all digits of the left foot. The patient tolerated the procedure and anesthesia well and without complication. The patient was transported from the operating room to the recovery room with vital signs stable and vascular status intact to all digits of the left foot. The patient was given both written and verbal instructions to remain nonweightbearing to the operative extremity, to keep dressings/splint c lean, dry and intact and to take pain medication as directed. The patient will follow-up in the outpatient setting at their scheduled appointment. The patient was discharged with my personal number and was instructed to call if any questions or issues should arise. They were discharged home once anesthesia criteria was met.
[2023-04-23] MEDS: HYDROcodone-acetaminophen 5-325 mg Tablet 1 TAB PO (09:20)
--- NOTE | 2023-04-23 17:44 | ANE.PACU2 ---
Inpatient post-anesthesia follow up: Airway intact: Yes Vital signs: Temperature 97.9 F Pulse Rate 86 Respiratory Rate 18 Blood Pressure 140/73 Pulse Oximetry 96 Oxygen Delivery Me thod Room Air Oxygen Flow Rate 6 Fraction of Inspir ed Oxygen Hydration adequate: Yes Nausea and vomiting: No Pain level: 2 Mental status: Baseline
== END 2023-04-23 09:40 | disposition home or self-care (01) ==
PROVIDERS: PCP Podiatrist Foot & Ankle Surgery; Visit Provider Podiatrist Foot & Ankle Surgery
PROC: (CPT 27650; principal; 2023-04-23 07:00)
DX: S86.012A Strain of left Achilles tendon, initial encounter (principal); X58.XXXA Exposure to other specified factors, initial encounter; Y93.67 Activity, basketball
CPT/HCPCS: 27650; J0131; J0690; J1100; J1885; J2250; J2405; J2704; J2710; J2795; J3010; J3490; J7030

== ENCOUNTER 2023-05-22 21:38 | Emergency (ER) | payer MEDICAID, SELFPAY ==
[2023-05-22 21:42] VITALS: BP 165/71; PULSE 95; RESP 18; TEMP 36.6; O2SAT 95; BMI 31.3
--- NOTE | 2023-05-22 21:44 | ED_ITS ---
HPI - Extremity Injury (Lower) General: Chief Complaint: Extremity Injury, Lower Stated Complaint: left foot tingling post surgery Time Seen by Provider: 05/22/23 21:39 History of Present Illness: 27-year-old male patient comes in today for evaluation of postsurgery tendon repair. Patient has Achilles tendon rupture at the end of March and was taken care of by Dr. Cha with surgical repair. Patient has been unable to follow-up with Dr. Cha after procedure due to insurance difficulties. Patient comes in tonight due to some tingling in his foot. Further discussion with the patient states that he is supposed to see Dr. Cha tomorrow in the office. Review of Systems General: Reports: 10 or more systems reviewed and unremarkable except in HPI and below Musc: Reports: extremity pain (Left foot tingling) [facility] ED PFSH: Medical History Unknown family medical history Surgical History Surgical history unknown Social History Smoking and tobacco/nicotine status: unknown if used tobacco/nicotine Alcohol intake: unknown Substance/Drug Use: unknown Household members: spouse Housing: House Physical Exam Const: COMMON NORMALS: alert HENMT: COMMON NORMALS: normocephalic HEAD & SCALP: normocephalic Neck/C-Spine: COMMON NORMALS: full ROM Resp: COMMON NORMALS: normal respiratory effort and clear to auscultation bilaterally AUSCULTATION: clear to auscultation bilaterally Cardio: COMMON NORMALS: regular rate and regular rhythm RATE: regular rate RHYTHM: regular rhythm Back/Pelvis: COMMON NORMALS: thoracic and lumbar spine normal to inspection Extremity: NARRATIVE EXTREMITY EXAM: Mild atrophy is noted to the calf muscle of the left lower extremity. Incision line is well-approximated without redness or drainage. Distal pulses and sensation is intact to the lower extremity. Neuro: SENSORIUM/ORIENTATION: Yes alert Skin: NARRATIVE SKIN EXAM: Well-healed approximated incision line to the left posterior ankle area. Course Vital Signs: Vital signs: Vital Signs Temperature 97.8 F 05/22/23 21:42 Pulse Rate 95 05/22/23 21:42 Respiratory Rate 18 12/07/23 21:42 Blood Pressure 165/71 05/22/23 21:42 Pulse Oximetry 95 05/22/23 21:42 Oxygen Delivery Me thod Room Air 05/22/23 21:42 MDM - Extremity Injury (Lower) Medical Decision Making 27-year-old male patient comes in today with concern for tingling in his left foot. On exam patient has a well-healed incision line with sutures intact to the posterior ankle of the left lower extremity. Pulses are intact. Cap refill is intact. Sensation is intact. Patient reports some numbness and tingling in the foot. Differential diagnosis includes not limited to postsurgical pain, neurovascular injury, neuralgia, wound infection. No signs of infection or serious injury is noted. Believe this is probably just postsurgical recovery. Strongly recommended patient follow-up with Dr. Cha tomorrow in the office for suture removal and further recommendations of treatment. No signs of severe illness or infection was noted. Patient was discharged to home. No radiology studies performed this visit Discharge Plan Discharge Patient Disposition: Home Clinical Impression: Achilles rupture, left Qualifiers: Encounter type: subsequent encounter Qualified Code(s): S86.012D - Strain of left Achilles tendon, subsequent encounter Condition: Stable Prescriptions: No Action cyclobenzaprine 10 mg tablet 10 mg PO Q12H Qty: 20 0RF hydrocodone-acetaminophen 5-325 mg tablet 1 tab PO Q6H PRN (Reason: pain) Qty: 28 0RF Discharge Orders: Discharge ED (Routine); Ordered 05/22/23 Ordered By: Talha Garcia Referrals: Henrik Cha DPM [Primary Care Provider] - Discharge Diet: Usual diet Discharge Activity: Increase activity as tolerated Patient Instructions: Care For Your Stitches (ED) Activity Restrictions/Additional Instructions: Keep appointment with Dr. Cha tomorrow. Return to ER as needed. Coding Level of Care Code ED Pig Machine Operator for Og Dhillon
[2023-05-22 22:11] VITALS: PULSE 89; RESP 18; O2SAT 98
== END 2023-05-22 22:12 | disposition home or self-care (01) ==
PROVIDERS: Emergency Provider Nurse Practitioner Family; PCP Podiatrist Foot & Ankle Surgery
DX: S86.012A Strain of left Achilles tendon, initial encounter (principal); X58.XXXA Exposure to other specified factors, initial encounter
CPT/HCPCS: 99281

== ENCOUNTER 2023-06-02 10:02 | Emergency (ER) | payer MEDICAID, SELFPAY ==
[2023-06-02 10:10] VITALS: PULSE 106; RESP 35; O2SAT 95; BMI 31.3
--- NOTE | 2023-06-02 10:12 | XR_ITS ---
WS: [id number] Left ankle, 3 views, 06/02/2023 Clinical Data: pain Comparison: Left ankle, 04/08/2023 Findings: No fractures or dislocations are seen. The ankle mortise is normal. The talus and calcaneus are unrem arkable. No soft tissue swelling over the medial or lateral malleolus is seen. Impression: Negative left ankle.
--- NOTE | 2023-06-02 10:13 | US_ITS ---
WS: [id number] ULTRASOUND SOFT TISSUES LEFT Achilles tendon. HISTORY: achilles tendon rupture, recent repair. COMPARISON: None available. TECHNIQUE: 2-D and color Doppler imaging is submitted. Markedly abnormal appearance of the Achilles tendon. The Achilles tendon is thickened and heterogeneo us. There is no large fluid gap identified. No retraction of the tendon. There is distortion and huey ation of the fibers of the tendon. This may be related to surgery or partial tear. There is variable echogenicity and marked enlargement of the tendon. There is also edema and fluid and possibly blood a djacent to the tendon sheath. IMPRESSION: 1. Abnormal Achilles tendon. The Achilles tendon is enlarged and heterogeneous with variable signal. No fluid gap. No full-thickness tear identified. There is an abnormal orientation of several of the f ibers along the tendon suggesting at least a partial tear or this may be postsurgical changes. Patien t will need nonurgent follow-up MRI of the Achilles tendon for better evaluation. 2. There is adjacent edema surrounding the tendon.
[2023-06-02 10:16] VITALS: RESP 35
[2023-06-02] MEDS: morphine 4 mg/mL SDV 1 mL IVP (10:16)
[2023-06-02] MEDS: ketorolac 30 mg/mL INJ IVP (10:16)
--- NOTE | 2023-06-02 10:16 | ED_ITS ---
HPI - Extremity Problem General: Chief complaint: Extremity Injury, Lower Stated complaint: Lt Foot inj Time Seen by Provider: 06/02/23 10:12 Source: patient Mode of arrival: wheelchair History of Present Illness: 27-year-old male presents emergency room with severe pain in his left Achilles tendon. Early April he had a proximal Achilles tendon rupture at the myotendinous junction. On May 03 he had a surgical repair. He he was at home today and he slipped in the shower and reinjured it he is complaining of severe pain in the area of his previous surgery. He denies any other injury did not strike his head did not lose consciousness. Did not take anything for it prior to arrival here. Complaint: extremity pain Onset (ago): minute(s) Pain Consistency: constant Location: left and lower extremity Relieving factors: nothing Exacerbating factors: nothing Associated symptoms: Deny chest pain, fever(s) or rash Context: recent surgery/procedure Review of Systems Const: Denies: fever(s) or chills Card: Denies: chest pain Resp: Denies: dyspnea GI: Denies: abdominal pain : Denies: dysuria, urinary frequency or urinary urgency Musc: Denies: neck pain or back pain Skin/Breast: Denies: rash PFSH ED PFSH: Medical History Unknown family medical history Surgical History Surgical history unknown Social History Smoking and tobacco/nicotine status: unknown if used tobacco/nicotine Alcohol intake: unknown Substance/Drug Use: unknown Household members: spouse Housing: House Physical Exam Const: ORIENTATION/CONSCIOUSNESS: Yes awake, Yes oriented to person, Yes oriented to place and Yes oriented to time HENMT: COMMON NORMALS: normocephalic, atraumatic and hearing grossly normal bilaterally HEAD & SCALP: normocephalic and atraumatic Resp: COMMON NORMALS: normal respiratory effort, No retractions, No use of accessory muscles and clear to auscultation bilaterally AUSCULTATION: clear to auscultation bilaterally Cardio: COMMON NORMALS: regular rhythm and No murmurs present (Cardio) RATE: tachycardic RHYTHM: regular rhythm Extremity: OTHER: Left lower extremity: Well-healed incision posterior calf from his previous Achilles tendon surgery. No obvious deformity neurovascularly intact. No obvious deformity. Neuro: SENSORIUM/ORIENTATION: Yes oriented to person, Yes oriented to place and Yes oriented to time Skin: COMMON NORMALS: no rashes or lesions noted GENERAL SKIN EXAM: no rashes or lesions noted Course Vital Signs: Vital signs: Vital Signs Pulse Rate 106 H 06/02/23 10:10 Respiratory Rate 35 H 06/02/23 10:16 Blood Pressure 185/100 06/02/23 10:25 Pulse Oximetry 95 06/02/23 10:10 Oxygen Delivery Me thod Room Air 06/02/23 10:10 MDM - Extremity (Nontraumatic) Medical Decision Making Discussed with Dr. David reviewed with the patient. Looks like there is some fluid around the repair per Dr. Corp. linares read. Does not look like there is a new deficit however. Suspect he partially tore there is some blood in that area but no identifiable recurrent separation of the tendon at that area. He is feeling much better the pain medications have helped. Dr. Romano recommends continuing his current restrictions wearing the cam boot nonweightbearing fol low-up with him in the office next week and he will determine whether or not further advanced imaging or other interventions may or may not be necessary. Reviewed with the patient and his significant other at the bedside. Discharge home with pain medications. Medical Records I reviewed the patient's medical records. Lab Data I reviewed the patient's lab results. All radiology interpretation(s) finalized by discharge Discharge Plan Discharge Patient Disposition: Home Clinical Impression: Achilles rupture, left Condition: Stable Prescriptions: New hydrocodone-acetaminophen 5-325 mg tablet 1 tab PO Q6H PRN (Reason: pain) Qty: 25 0RF No Action (DME) CAM boot See Rx Instructions .Route .MEDSUPPLY Qty: 1 0RF Rx Instructions: As directed to HOME (DME) Heel Lift See Rx Instructions .Route .MEDSUPPLY Qty: 1 0RF Rx Instructions: As directed cyclobenzaprine 10 mg tablet 10 mg PO Q12H Qty: 20 0RF hydrocodone-acetaminophen 5-325 mg tablet 1 tab PO Q6H PRN (Reason: pain) Qty: 28 0RF Discharge Orders: Discharge ED (Routine); Ordered 06/02/23 Ordered By: Terrence Bertrand Referrals: Henrik Cha DPM [Primary Care Provider] - Discharge Diet: Usual diet Discharge Activity: Limit activity as instructed Patient Instructions: Opioid Safety, Pain Management Activity Restrictions/Additional Instructions: Thank you for choosing [facility] for your healthcare needs today. Please realize this is an emergency room and that we are providing you with a medical screening exam and this may not be complete and all inclusive of all the testing and or work up that you may need to determine your ailment or severity of your illness. It is very important that you follow up as instructed or that you return to the Emergency Department should you have concerns or if your condition changes or worsens in any way. Call Dr. Shafer's office for follow-up appointment. Coding Level of Care Code ED Reservations And Ticketing Agent for Og Dhillon
[2023-06-02 10:25] VITALS: BP 185/100
--- NOTE | 2023-06-02 10:29 | PC.NURSE ---
PT IN WAITING ROOM THROWING ITEMS AND SCREAMING. NURSE PRESENTED AND PATIENT BEGAN TO SCREAM AT NURSE TO TAKE HIM BACK. NURSE STATES THAT I WAS GOING TO TAKE HIM TO A ROOM. PATIENT YELLED AGAIN AT NURSE. NURSE STATED THAT YELLING WOULD NOT BE TOLERATED. PATIENT JERKED WHEELCHAIR FROM NURSE AND BEGAN ROLLING HIMSELF THROUGH THE DOORS. PATIENT MET BY RODRIGUE BEFORE ROOM ARRIVAL WITH ATTEMPT TO DE-ESCALATE PATIENT. PATIENT WHEELED TO ROOM 4, PATIENT BEGAN TO TAKE CONTROL OF WHEELCHAIR, THIS NURSE INSTRUCTED TO STOP. PATIENT THEN ABRUPTLY GOT UP AND HOPPED ON ONE LEG TO BED. WHEELCHAIR BROKEN BY PATIENT IN WAITING ROOM. SECURITY NOTIFIED.
== END 2023-06-02 11:14 | disposition home or self-care (01) ==
PROVIDERS: Emergency Provider Family Medicine; PCP Podiatrist Foot & Ankle Surgery
DX: S86.012A Strain of left Achilles tendon, initial encounter (principal); W18.2XXA Fall in (into) shower or empty bathtub, initial encounter
CPT/HCPCS: 73610; 76882; 96374; 96375; 99284; J1885; J2060; J2270

== ENCOUNTER → 2023-08-06 13:23 | Outpatient (BNVA) | payer OTHER, MEDICAID, SELFPAY | PROVIDERS: PCP Podiatrist Foot & Ankle Surgery; Visit Provider Nurse Practitioner | DX: R05.8 Other specified cough (principal) | CPT/HCPCS: 87400 ==